=== PATIENT | male | born 1955 | race Caucasian/White ===

== ENCOUNTER 2020-06-01 13:07 | Emergency (ER) | payer OTHER, SELFPAY ==
--- NOTE | ~2020-06-01 | XR_ITS ---
XR abdomen/kub 1V DATE: 06/01/2020 14:11 INDICATION: Left flank and abdominal pain TECHNIQUE: AP projection, 2 views COMPARISON: None FINDINGS: There is a faint calcific density overlying the left ureteropelvic junction, which may acco unt for left flank pain. There is probable left nephromegaly. Noncontrast CT abdomen pelvis examinati on would be helpful for more definitive confirmation. Subtle faint opacities overlying the left renal silhouette might indicate or more additional calculi. Again, noncontrast CT abdomen pelvis examination would be much more sensitive and accurate for detec tion of urinary tract calculi. The psoas shadows are intact. There is a prominent amount of fecal material in the colon but no evidence of bowel obstruction. IMPRESSION: Suspected approximately 4 mm left ureterovesical junction faintly calcified calculus; non contrast CT abdomen pelvis examinations] is recommended Reviewed, dictated and finalized at [facility]. Reviewed, dictated and finalized at location A. TE MEDICAL CODER IMPRESSION: Suspected approximately 4 mm left ureterovesical junction faintly c alcified calculus; noncontrast CT abdomen pelvis examinations] is recommended
[2020-06-01 13:15] VITALS: BP 148/92; PULSE 59; RESP 20; TEMP 36.5; O2SAT 98
--- NOTE | 2020-06-01 13:43 | ED.GENADULT ---
HPI - General Adult General Chief complaint: Back Pain/Injury Stated complaint: abd/back pain Time Seen by Provider: 06/01/20 13:34 Source: patient and RN notes reviewed Mode of arrival: ambulatory Limitations: no limitations History of Present Illness HPI narrative: 64-year-old male presents with complaints of diffused lower back pain with radiating to LT flank into left lower quadrant and groin for 1 day. Ho reports playing cyber golf for the past 48 hours initially believed back pain was related to golf playing until he started sweating 1-2 hours prior to arrival to [facility]. Awaken this morning with diffused back pain and sweating which increased throughout the day. Hot bath, back massager, Advil (400mg last today at 13:00), and Flexeril (10mg last today at 12:00) without relief. Denies new injuries or falls. Denies numbness or tingling. Denies fever or chills. No upper or lower extremity pain or weakness. Exacerbating factor consist of using massager. Denies nausea or vomiting. Tolerating po intake well. Denies problems with urinating or having a bowel movement, LBM 05/31/20 per patient and normal. No hematuria or dysuria. Denies chest pain, shortness of breath, dizziness, syncopal episodes, lightheadedness, or seizure activity. Remains active. The patient reports he have not been diagnosed with COVID-19. The patient reports he is not waiting for the results of a COVID-19 lab test. The patient reports he do not have chills, weakness, or fatigue. The patient reports he do not have a new or worsening cough. The patient reports he do not have any rhinorrhea, congestion, loss of taste or smell, sore throat, or diarrhea. Denies recent traveling. Denies concerns for COVID-19 or exposures been home with limited outdoor exposure except for essential household needs and return home. At this time, patient is not suspected of having COVID-19. Some parts of this dictation were generated by voice recognition software and may contain typographical and/or grammatical inaccuracies. Related Data Home Medications Medication Instructions Recorded Confirmed aspirin 81 mg tablet,delayed 81 mg PO DAILY 04/16/19 06/01/20 release cetirizine 10 mg tablet 10 mg PO DAILY PRN 04/16/19 06/01/20 coenzyme Q10 10 mg capsule 10 mg PO ONCE 04/16/19 06/01/20 cholecalciferol (vitamin D3) 50 50 mcg PO DAILY 11/02/19 06/01/20 mcg (2,000 unit) capsule multivitamin 1 tablet PO DAILY 11/02/19 06/01/20 omega-3 fatty acids 1,000 mg 1,000 mg PO DAILY 11/02/19 06/01/20 capsule Allergies Allergy/AdvReac Type Severity Reaction Status Date / Time rosuvastatin Allergy Unknown Unknown Verified 06/01/20 13:13 simvastatin Allergy Unknown Double Verified 06/01/20 13:13 vision Review of Systems Review of Systems: Narrative: CONSTITUTIONAL: Denies fever, chills. Complains of being clammy. EYES: Denies visual changes, redness, discharge. ENT: Denies rhinorrhea, congestion, sore throat, otalgia. CARDIOVASCULAR: Denies chest pain, palpitations, edema. RESPIRATORY: Denies dyspnea, wheezing, cough. GASTROINTESTINAL: Complains of LLQ pain. Denies nausea, vomiting, diarrhea. GENITOURINARY: Denies dysuria, hematuria, abnormal discharge. SKIN: Denies rash or itching. MUSCULOSKELETAL: Complains of diffused lower back pain with radiating to LT flank. Denies joint pain or myalgia. NEUROLOGIC: Denies numbness or focal weakness. PSYCHIATRIC: Denies anxiety or depression. All systems reviewed & are unremarkable except as noted in HPI and below. [facility] Past Medical History Medical History (Updated 06/01/20 @ 14:42 by ANIL Brennan) BPV (benign positional vertigo) Diverticulitis Essential (primary) hypertension Hearing loss in right ear Hemorrhoids Peter report internal with intermittent bleeding Hypercholesteremia Inflamed seborrheic keratosis Metabolic syndrome Migraine variant without intractability Prediabetes Prostatitis S
--- NOTE | 2020-06-01 14:56 | PC.NURSE ---
1350: patient sitting upright on exam table and reports that the pain has gone.
== END 2020-06-01 14:46 | disposition home or self-care (01) ==
PROVIDERS: Emergency Provider Nurse Practitioner Family; PCP Family Medicine
DX: N20.0 Calculus of kidney (principal); I10 Essential (primary) hypertension; E78.00 Pure hypercholesterolemia, unspecified; E88.81 Metabolic syndrome and other insulin resistance
CPT/HCPCS: 74018; 81003; 99213; G0463

== ENCOUNTER → 2020-06-05 15:18 | Outpatient (CLI) | payer OTHER, SELFPAY ==
--- NOTE | ~2020-06-05 | CT_ITS ---
EXAMINATION: CT abdomen pelvis wo con DATE: 06/05/2020 15:38 INDICATION: Left flank pain, microscopic hematuria TECHNIQUE: Computed tomography (CT) of the abdomen and pelvis was performed without intravenous contr ast. The dose-length product (DLP) was 1090.64 mGy-cm. Automated exposure control and iterative recon struction technique were employed. COMPARISON: 06/01/2020 FINDINGS: The lung bases are clear. The heart size is normal. The liver, spleen, pancreas, gallbladde r, and adrenal glands are normal. There is a 5 mm stone at the left ureteropelvic junction which caus es mild hydronephrosis. The right kidney is unremarkable. Surgical changes are noted in the sigmoid c olon. No pathologically enlarged abdominal or pelvic lymph nodes are identified. There is no free int raperitoneal gas or evidence of bowel obstruction. The appendix is normal. There is moderate lumbar s pondylosis. A tiny fat-containing umbilical hernia is noted. IMPRESSION: 1. 5 mm stone at the left ureteropelvic junction causing mild left hydronephrosis. Recent KUB positiv e. Reviewed, dictated and finalized at location A. PS ENGINEER IMPRESSION: 1. 5 mm stone at the left ureteropelvic junction causing mild left hydronephros is. Recent KUB positive.
== END ==
PROVIDERS: PCP Family Medicine; Visit Provider Family Medicine
DX: N20.1 Calculus of ureter (principal)
CPT/HCPCS: 74176

== ENCOUNTER → 2020-06-09 11:14 | Outpatient (CLI) | payer OTHER, SELFPAY ==
--- NOTE | ~2020-06-09 | XR_ITS ---
EXAMINATION: XR abdomen/kub 1V INDICATION: Calcium kidney stone TECHNIQUE: Supine views of the abdomen were obtained on 2 radiographs. COMPARISON: 06/01/2020 FINDINGS: There is a subtle persistent 5 mm calcification at the expected location of the left ureter opelvic junction projecting between the left L3 and L4 transverse processes. No additional urinary tr act calculi are identified. The bowel gas pattern is normal. There is mild osteoarthritis of the hips . IMPRESSION: 1. Stable 5 mm stone at the left ureteropelvic junction. Reviewed, dictated and finalized at location A. PROCESSOR
== END ==
PROVIDERS: PCP Family Medicine; Visit Provider Urology
DX: N20.0 Calculus of kidney (principal)
CPT/HCPCS: 74018

== ENCOUNTER 2020-06-19 13:02 | Outpatient (CLI) | payer OTHER, SELFPAY ==
--- NOTE | 2020-06-19 13:16 | ECG_ITS ---
Measurements Intervals [place] Rate: 60 P: 13 AL: 129 QRS: 39 QRSD: 98 T: 61 QT: 423 QTc: 425 Interpretive Statements SINUS RHYTHM BORDERLINE R WAVE PROGRESSION, ANTERIOR LEADS BORDERLINE ST-T WAVE ABNORMALITY- ANT/HIGH LAT LEADS BASELINE ARTIFACT- I, III, AVR, AVL, V5-V6 BORDERLINE ECG Electronically Signed On 06-19-2020 13:40:38 CDT by Hubert Vargas D.O.
[2020-06-19 14:01] LABS: INR 0.9; Prothrombin Time 12.9 Seconds (11.1-14.7)
[2020-06-19 14:03] LABS: Anion Gap 6 mmol/L (8-16); Blood Urea Nitrogen 17 mg/dL (9-20); Calcium 9.5 mg/dL (8.4-10.2); Carbon Dioxide 30 mmol/L (22-30); Chloride 104 mmol/L (98-107); Estimated Glomerular Filt Rate > 60; Glucose 86 mg/dL (75-110); Potassium 4.4 mmol/L (3.4-5.0); Sodium 140 mmol/L (137-145)
== END 2020-06-19 13:03 | disposition home or self-care (01) ==
LOC: ANHSURGERY 13:03
PROVIDERS: Anesthesiology; PCP Family Medicine; Visit Provider Urology
DX: N20.1 Calculus of ureter (principal); E78.00 Pure hypercholesterolemia, unspecified; I10 Essential (primary) hypertension; E11.9 Type 2 diabetes mellitus without complications; Z01.818 Encounter for other preprocedural examination
CPT/HCPCS: 36415; 80048; 85610; 85730; 87086; 93005

== ENCOUNTER → 2020-06-24 03:09 | Outpatient (CLI) | payer OTHER, SELFPAY ==
[2020-06-24 18:08] LABS: SARS-CoV-2 RNA PCR Negative
== END ==
PROVIDERS: PCP Family Medicine; Visit Provider Urology
DX: Z01.812 Encounter for preprocedural laboratory examination (principal); Z20.822 Contact with and (suspected) exposure to COVID-19
CPT/HCPCS: C9803; U0003; U0005

== ENCOUNTER 2020-06-27 00:50 | Day surgery (SDC) | payer OTHER, SELFPAY ==
[2020-06-18 12:43] VITALS: BMI 31.1
--- NOTE | 2020-06-26 10:00 | WPDANESEPPF ---
Anes - Initial Pre Proc Eval Procedure: Operation Date: 06/27/20 09:30 Proposed Procedures p Left Ureteral Extracorporeal Shock Wave Lithotripsy - Kris Casey MD Date/Time: 06/26/20 10:00 Surgeon: Kris Casey MD Pre Op Diagnosis: Left Ureteral Stone Patient Data Age: 64 Gender: M Height: 1.83 m Weight: 104.3 kg Allergies Allergy/AdvReac Type Severity Reaction Status Date / Time rosuvastatin Allergy Unknown Unknown Verified 06/27/20 08:00 simvastatin Allergy Unknown Double Verified 06/27/20 08:00 vision Home Medications Medication Instructions Recorded Confirmed Type aspirin 81 mg tablet,delayed 81 mg PO DAILY 04/16/19 06/27/20 History release cetirizine 10 mg tablet 10 mg PO DAILY PRN 04/16/19 06/27/20 History coenzyme Q10 10 mg capsule 10 mg PO DAILY 04/16/19 06/27/20 History cholecalciferol (vitamin D3) 50 50 mcg PO DAILY 11/02/19 06/27/20 History mcg (2,000 unit) capsule multivitamin 1 tablet PO DAILY 11/02/19 06/27/20 History omega-3 fatty acids 1,000 mg 1,000 mg PO DAILY 11/02/19 06/27/20 History capsule atenolol 25 mg tablet 25 mg PO DAILY #90 tablet 12/24/19 06/27/20 Rx metformin 500 mg tablet 500 mg PO DAILY #90 tablet 12/24/19 06/27/20 Rx fenofibrate 160 mg tablet 160 mg PO DAILY #90 tablet 04/21/20 06/27/20 Rx ibuprofen 800 mg PO TID PRN #60 tablet 06/01/20 06/27/20 Rx tamsulosin 0.4 mg PO DAILY #14 cap 06/01/20 06/27/20 Rx Patient hx anesthesia problems: none Family hx anesthesia problems: none PMFSH Past Medical History Medical History (Updated 06/06/20 @ 08:30 by Will Deshpande MD) BPV (benign positional vertigo) Diverticulitis Essential (primary) hypertension Hearing loss in right ear Hemorrhoids Peter report internal with intermittent bleeding Hypercholesteremia Inflamed seborrheic keratosis Metabolic syndrome Migraine variant without intractability Prediabetes Prostatitis Ureteral calculi Surgical History Surgical History (Updated 06/01/20 @ 14:19 by ANIL Brennan) History of colon surgery related to diverticulitis-2003 History of spinal surgery 1996 L5-S1 Family History Family History Father Family history of cardiovascular disease Grandparent Family history of lung cancer Social History Social History (Updated 06/01/20 @ 16:01 by ANIL Brennan) Smoking status: Never smoker Tobacco type: cigarettes Second hand tobacco smoke exposure: No Alcohol intake: current Drinks per week: 4 Alcohol use details: 3-4 DRINKS ON WEEKEND EVENINGS Substance use: never Substance use type: does not use Living arrangements: with family Additional occupation/education comments: 04/03/20 Gender identity (if verbalized by the patient): Male Spiritual care concerns: No Anes - Eval Final PreProcedure Day of Procedure 06/26/20 10:00 Patient weight: obese Heart: regular rate and rhythm Lungs: clear to auscultation and normal air movement Airway: Mallampati scale class III Neurological: alert and oriented Last oral intake: >/= 8 hours ASA classification: III Emergent: no Anesthetic plan: proceed Anesthesia type and monitoring: general LMA and standard monitoring Informed Consent: The patient's anesthetic plan and its attendant risks and benefits were discussed with the patient/family/POA. Questions were solicited and answers provided to the satisfaction of the patient/family/POA.
[2020-06-27] VITALS (9 sets, daily range): BP systolic 94–128; BP diastolic 58–79; PULSE 51–59; RESP 14–16; TEMP 36.2; O2SAT 96–99
--- NOTE | ~2020-06-27 | XR_ITS ---
XR abdomen/kub 1V 06/27/2020 07:42 Indication: Preop lithotripsy therapy. Renal stones. Procedure: KUB Comparison: 06/09/2020 Findings: There is a punctate stone in the lower pole of the left kidney. Bowel gas pattern is nonobs tructive. Moderate colonic fecal loading. Mild osteoarthritis of the hips. Visualized aspects of the lung bases unremarkable. Impression: 1: Small lower pole stone in the left kidney. Reviewed, dictated and finalized at location B. Impression: 1: Small lower pole stone in the left kidney.
--- NOTE | 2020-06-27 06:35 | WPDHPUPDATE1 ---
History and Physical Update Update Date/Time: 06/27/20 06:35 History and Physical has been reviewed, including an updated exam of the patient. There are NO changes in the patient's condition. Risks, benefits, and alternatives have been discussed and questions answered. Patient agrees to proceed with procedure.
[2020-06-27] MEDS: LACTATED RINGERS 1,000 ML 30 ML IV CONT ×2 (08:15→10:17)
[2020-06-27 08:25] LABS: Glucose Point of Care 108 (65-105)
--- NOTE | 2020-06-27 09:51 | PM.PROC ---
Procedure Note - Detailed Date of procedure: 06/27/20 Pre-op diagnosis: Left Renal Stone Post-op diagnosis: same Procedure performed: Left ESWL Description of procedure: The patient was brought to the operative suite where he was placed in the supine position on the Dornier lithotripsy table. The focal point of the lithotripter was placed at a 5mm left renal calculus. A total of 2500 shocks were delivered at a power setting of 4. There appeared to be good fragmentation of the stone. The patient tolerated the procedure well and was taken to the recovery room in good condition. Anesthesia: GLMA Surgeon: Kris Casey MD Drains: No Packing: No Pathology: none sent Complications: No immediate complications Condition: stable Disposition: PACU
[2020-06-28 21:30] LABS: Glucose Point of Care 113 (65-105)
== END 2020-06-27 12:28 | disposition home or self-care (01) ==
PROVIDERS: PCP Family Medicine; Visit Provider Urology
PROC: (CPT 50590; principal; 2020-06-27 09:30)
DX: N20.0 Calculus of kidney (principal); I10 Essential (primary) hypertension; E78.00 Pure hypercholesterolemia, unspecified; R73.03 Prediabetes; Z79.84 Long term (current) use of oral hypoglycemic drugs; Z79.82 Long term (current) use of aspirin; E66.9 Obesity, unspecified; Z68.30 Body mass index [BMI] 30.0-30.9, adult
CPT/HCPCS: 50590; 36415; 74018; 80048; 82948; 85610; 85730; 87086; 93005; C9803; J1100; J2405; J2704; J7120; U0003; U0005

== ENCOUNTER 2020-07-14 11:25 | Outpatient (CLI) | payer OTHER, SELFPAY ==
--- NOTE | ~2020-07-14 | XR_ITS ---
EXAMINATION: XR abdomen/kub 1V INDICATION: Ureteral stone post lithotripsy TECHNIQUE: Supine views of the abdomen were obtained on 2 radiographs. COMPARISON: 06/27/2020 FINDINGS: No definite urolithiasis is identified. The previously described punctate left kidney stone is not seen. The bowel gas pattern is normal. There is mild osteoarthritis of the hips. IMPRESSION: 1. No urolithiasis is identified. Reviewed, dictated and finalized at location B.
== END 2020-07-14 11:26 | disposition home or self-care (01) ==
PROVIDERS: PCP Family Medicine; Visit Provider Urology
DX: N20.1 Calculus of ureter (principal)
CPT/HCPCS: 74018

== ENCOUNTER → 2021-01-19 08:40 | Outpatient (CLI) | payer OTHER, SELFPAY ==
--- NOTE | ~2021-01-19 | XR_ITS ---
XR abdomen/kub 1V 01/19/2021 09:05 INDICATION: Left ureteral cyst TECHNIQUE: KUB COMPARISON: Comparison to multiple prior studies sequentially, with oldest reviewed study dated 06/01. FINDINGS: Bowel gas pattern is normal. Moderate colonic fecal loading. There is no evidence of free a ir, mass, organomegaly, ascites or obstruction. No abnormal calculi are seen. The bones appear inta ct. IMPRESSION: 1: No acute abdominal abnormality identified. Reviewed, dictated and finalized at location B.
== END ==
PROVIDERS: Visit Provider Urology
DX: N20.1 Calculus of ureter (principal)
CPT/HCPCS: 74018

== ENCOUNTER → 2021-07-27 11:17 | Outpatient (CLI) | payer OTHER, SELFPAY ==
--- NOTE | ~2021-07-27 | CT_ITS ---
EXAMINATION: CT sinus wo con DATE: 07/27/2021 11:32 INDICATION: Chronic sinusitis. Chronic congestion. TECHNIQUE: Computed tomography (CT) of the paranasal sinuses was performed without contrast. Iterativ e reconstruction technique was employed. Exam dose: 290.62 mGy-cm total exam DLP. COMPARISON: None FINDINGS: There is leftward bowing of the nasal septum. Prominent elvia bullosa and intralamellar cell of right middle nasal turbinate. The nasal turbinates are moderately prominent in size bilaterally. The maxillary ostium and infundibulum are patent bilaterally. Normal development and aeration of the paranasal sinuses and mastoid air cells. IMPRESSION: Leftward bowing of nasal septum Elvia bullosa and intralamellar cell of right middle nasal turbinate Reviewed, dictated and finalized at [facility]. Reviewed, dictated and finalized at location A.
== END ==
PROVIDERS: PCP Family Medicine; Visit Provider Family Medicine
DX: J32.9 Chronic sinusitis, unspecified (principal); J34.2 Deviated nasal septum
CPT/HCPCS: 70486

== ENCOUNTER → 2021-11-02 12:44 | Outpatient (CLI) | payer BC, SELFPAY ==
--- NOTE | ~2021-11-02 | XR_ITS ---
EXAMINATION: XR chest 2V 11/02/2021 12:59 INDICATION: Cough PROCEDURE: 2 view chest COMPARISON: No prior studies for comparison. FINDINGS: The lungs are clear. The cardiomediastinal silhouette is within normal limits. There are no pleural effusions. There is no pneumothorax suspected. IMPRESSION: 1: NO ACUTE CARDIOPULMONARY DISEASE. Reviewed, dictated and finalized at location A.
== END ==
PROVIDERS: PCP Family Medicine; Visit Provider Physician Assistant
DX: R05.9 Cough, unspecified (principal)
CPT/HCPCS: 71046

== ENCOUNTER → 2022-06-07 15:27 | Outpatient (CLI) | payer BC, SELFPAY ==
--- NOTE | ~2022-06-07 | MR_ITS ---
EXAMINATION: MR lumbar spine wo con DATE: 06/07/2022 16:08 INDICATION: Low back pain TECHNIQUE: Magnetic resonance imaging (MRI) of the lumbar spine was performed without intravenous con trast. Sequences included sagittal T2-weighted FSE, sagittal T2-weighted FS FSE, sagittal T1-weighted FSE, and axial T2-weighted FSE. COMPARISON: Lumbar spine MR dated 01/10/[address] abdomen and pelvis dated FINDINGS: A degree lumbar levocurvature. 6 mm retrolisthesis L5 on S1. Vertebral body heights are normal. Marisol l marrow signal. Mild disc height loss with mild disc desiccation at L3-L4 and L4-L5. Moderate disc h eight loss at L5-S1. Annular fissures at both L4-L5 and L5-S1. Multiple tiny foci of postoperative glass sceptibility artifact at the site of a chronic left-sided hemilaminotomy at L5-S1. The conus medullar is terminates at L1. There is normal signal in the caudal spinal cord. The following disc levels are specifically discussed: T12-L1: The disc does not extend beyond the endplate margin. There is mild left and moderate right fa cet joint osteoarthritis. There is no neural foraminal stenosis. There is no central canal stenosis. L1-L2: Disc is minimally bulging. There is moderate right and mild to moderate left facet joint osteo arthritis. There is mild bilateral neural foraminal stenosis. There is mild central canal stenosis. L2-L3: The disc does not extend beyond the endplate margin. There is mild hypertrophy of the ligament um flavum. There is mild bilateral facet joint osteoarthritis. There is mild bilateral neural forami nal stenosis. There is mild central canal stenosis. L3-L4: Disc is mildly bulging. There is hypertrophy of the ligamentum flavum. There is mild right and mild to moderate left facet joint osteoarthritis. There is mild left and mild to moderate right neur al foraminal stenosis. There is mild central canal stenosis. L4-L5: Disc is mildly bulging with superimposed annular fissure and central to left foraminal zone di sc protrusion. There is mild to moderate bilateral facet joint osteoarthritis. There is moderate bila teral neural foraminal stenosis. There is mild central canal stenosis along with moderate narrowing o f the left lateral recess. L5-S1: Disc is bulging with annular fissure. Small and placed osteophytes at the bilateral foraminal zones. There is mild right and mild to moderate left . facet joint osteoarthritis. There is moderate bilateral neural foraminal stenosis. Left posterior decompression. There is no central canal stenosis . IMPRESSION: 1. Mild to moderate lower lumbar predominant spondylosis. 2. Chronic L5-S1 left hemilaminotomy. Reviewed, dictated and finalized at location A. UM BLOCK SETTER
== END ==
PROVIDERS: PCP Family Medicine; Visit Provider Physical Medicine & Rehabilitation
DX: M47.896 Other spondylosis, lumbar region (principal)
CPT/HCPCS: 72148

== ENCOUNTER 2023-05-23 08:41 | Outpatient (CLI) | payer MEDICARE, OTHER, SELFPAY ==
--- NOTE | 2023-06-13 11:04 | WPDSLEEPSTUD ---
Sleep Study Date of Study: 05/23/23 Ordering Provider: Romie Harp, WANDA Interpreting Physician: Lizzeth Sewell DO Sleep Study Type: Split Polysomnogram Height: 1.83 m Weight: 102.058 kg Body Mass Index: 30.5 Neck Circumference (inches): 17 [place]: 5 Reason for Sleep Study Elevated blood pressure and hemoglobin Sleep History The patient is a 67-year-old male hypertension, hyperlipidemia, seasonal allergies, prediabetes and metabolic syndrome that had a sleep study ordered by his primary care for evaluation of sleep apnea. The patient occasionally awakens at night with heartburn, belching or cough. He constantly snores loud enough that others complain. He occasionally has trouble sleeping when he has a cold. He denies waking up gasping for air throughout the night. He denies having breathing problems at night observed by himself or others. He occasionally sweats excessively at night. He denies having heart palpitations or irregular heartbeats during the night. He occasionally falls asleep during the day but never while driving. He denies sleep paralysis, cataplexy and hypnagogic / hypnopompic hallucinations. He denies having trouble at school or work due to sleepiness. He denies feeling afraid of going to sleep. He denies having nightmares. He rarely remembers his dreams. He occasionally has thoughts racing through his mind. He denies feeling sad or depressed. He occasionally has anxiety. He denies having muscular tension. He occasionally notices parts of his body jerk. He denies kicking during the night. He frequently has crawling and aching feelings in his legs and frequently has leg pain during the night. He denies grinding his teeth during sleep denies awakening morning jaw pain. He is frequently bothered by pain during the day but rarely awakened by pain during the night. He frequently wakes feeling stiff in morning. He denies waking up with sore or achy muscles. He occasionally wakes up with pain in the neck, spine and other joints. He goes to bed between 11:00 p.m. to midnight on both weekdays and weekends. It takes him 30 minutes to fall asleep. He wakes up 1-2 times throughout the night to urinate is able to fall back asleep within 30-60 minutes. He wakes up between 8-10 a.m. on both weekdays and weekends. He typically gets 7-9 hours of sleep per night. He was stay in bed for 1 hour after waking up in the morning. He lives with his and daughter. He denies consuming any caffeinated beverages within 2 hours of bedtime. He denies engaging in physical exercise before bedtime. He will read watch television before falling asleep. Will take naps in afternoon or the evening and they are refreshing. He consumes 1 cup of caffeinated beverage per day. He consumes 2-3 alcoholic beverages on weekends. He denies tobacco and recreational drug use. [facility] Past Medical History Medical History BPV (benign positional vertigo) COVID-19 Diverticulitis Essential (primary) hypertension Hearing loss in right ear Hemorrhoids Peter report internal with intermittent bleeding Hypercholesteremia Inflamed seborrheic keratosis Metabolic syndrome Migraine variant without intractability Prediabetes Prostatitis Ureteral calculi Surgical History Surgical History History of colon surgery related to diverticulitis-2003 History of spinal surgery 1996 L5-S1 Family History Family History Father Family history of cardiovascular disease Grandparent Family history of lung cancer Social History Social History Smoking status: Never smoker Tobacco type: cigarettes Second hand tobacco smoke exposure: No Alcohol intake: current Drinks per week: 8 Alcohol use details
[2023-06-13 11:28] VITALS: BMI 30.5
== END 2023-05-24 07:36 | disposition home or self-care (01) ==
LOC: ANHCSM 08:42
PROVIDERS: PCP Family Medicine; Visit Provider Physician Assistant
DX: R29.818 Other symptoms and signs involving the nervous system (principal); G47.33 Obstructive sleep apnea (adult) (pediatric)
CPT/HCPCS: 95811

== ENCOUNTER 2023-12-20 15:33 | Outpatient (CLI) | payer MEDICARE, OTHER, SELFPAY ==
[2023-12-20 15:47] LABS: Basophils Absolute Auto 0.1 K/mm3 (0.0-0.1); Basophils Percent Auto 1.1 % (0.2-1.2); Eosinophils Absolute Auto 0.2 K/mm3 (0-0.3); Eosinophils Percent Auto 2.5 % (0-4.4); Hematocrit 52.4 % (42.0-52.0); Hemoglobin 18.3 g/dL (14.0-18.0); Immature Granulocyte Absolute 0.03 K/mm3 (0.00-0.031); Immature Granulocyte Percent A 0.5 % (0-0.5); Lymphocytes Absolute Auto 2.13 K/mm3 (0.9-3.2); Mean Corpuscular HGB Conc 34.9 g/dl (32-36); Mean Corpuscular Hemoglobin 30.7 pg (26-34); Mean Corpuscular Volume 87.9 fl (80-100); Mean Platelet Volume 9.1 fl (7.4-10.4); Monocytes Absolute Auto 0.7 K/mm3 (0.1-0.6); Monocytes Percent Auto 10.4 % (2.6-8.5); Neutrophils Absolute Auto 3.4 K/mm3 (1.3-6.7); Neutrophils Percent Auto 52.5 % (45.5-73.1); Platelet Count Result 234 k/mm3 (150-375); Red Blood Count 5.96 M/mm3 (4.6-6.20); Red Cell Distribution Width 12.5 % (11.5-14.5); White Blood Count 6.5 K/mm3 (4.5-10.0)
[2023-12-20 16:29] LABS: Alanine Aminotransferase 56 U/L (6-50); Albumin Level 4.4 g/dL (3.5-5.1); Alkaline Phosphatase 61 U/L (38-126); Anion Gap 13 mmol/L (4-12); Aspartate Amino Transferase 35 U/L (17-59); Bilirubin,Total 0.5 mg/dL (0.2-1.3); Blood Urea Nitrogen 27 mg/dL (9-20); Carbon Dioxide 28 mmol/L (22-30); Chloride 100 mmol/L (98-107); Estimated Glomerular Filt Rate > 60; Glucose 124 mg/dL (65-110); Potassium 3.9 mmol/L (3.4-5.0); Sodium 141 mmol/L (137-145)
[2023-12-27 23:58] LABS: JAK2 V617F Mutation NOT DETECTED (NOT DETECTED); Specimen Source BLOOD
[2023-12-30 17:14] LABS: Erythropoietin (EPO) 16.9 mIU/mL (2.6-18.5)
== END 2023-12-20 15:34 | disposition home or self-care (01) ==
LOC: ANHLAB 15:38
PROVIDERS: PCP Family Medicine; Visit Provider Internal Medicine Hematology & Oncology
DX: D75.1 Secondary polycythemia (principal)
CPT/HCPCS: 36415; 80053; 81270; 82668; 85025

== ENCOUNTER 2024-04-26 14:03 | Outpatient (CLI) | payer MEDICARE, OTHER, SELFPAY ==
[2024-04-26 14:21] LABS: Hematocrit 50.9 % (42.0-52.0); Hemoglobin 17.4 g/dL (14.0-18.0); Mean Corpuscular HGB Conc 34.2 g/dl (32-36); Mean Corpuscular Hemoglobin 29.9 pg (26-34); Mean Corpuscular Volume 87.6 fl (80-100); Mean Platelet Volume 8.9 fl (7.4-10.4); Platelet Count Result 212 k/mm3 (150-375); Red Blood Count 5.81 M/mm3 (4.6-6.20); Red Cell Distribution Width 12.4 % (11.5-14.5); White Blood Count 7.4 K/mm3 (4.5-10.0)
--- OUTSIDE RECORDS SUMMARY | 2024-04-27 05:31 | XMS_ITS | Encounter Summary ---
Author Organization [facility] Address [address] [place] [address] Care Team Providers Care Blood And Plasma Laboratory Assistant Name Role Phone Will Deshpande MD Primary Care Provider [phone]- [phone] Reason for Visit * Reason Comments Follow Up Encounter Details Date Type Department Care Team (Late st Contact Info) Description 04/26/2024 2:15 PM INTERACTIVE MEDIA MARKETING DIRECTOR Office Visit [facility] Oncology and Hematology - [place] [address] [facility] [address] [place] [address] Axel Chicas MD [address] [facility] [address] [place] [address] Polycythemia, secondary (Primary Dx) Social History Tobacco Use Types Packs/Day Years Used Date Smoking Tobacco: Never Smokeless Tobacco: Never Tobacco Cessation:Counseling Given: Not Answered Alcohol Use Standard Drinks/Week Comments Yes 0 (1 standard drink = 0.6 oz pur e alcohol) Socially Sex and Gender Information Value Date Recorded Sex Assigned at Not on file Legal Sex Male 10:22 AM CDT Gender Identity Not on file Sexual Orientation Not on file documented as of this encounter Last Filed Vital Signs Vital Sign Reading Time Taken Comments Blood Pressure 121/73 04/26/2024 2:23 PM INTERACTIVE MEDIA MARKETING DIRECTOR Pulse 69 04/26/2024 2:23 PM INTERACTIVE MEDIA MARKETING DIRECTOR Temperature 36.6 ??C (97.9 ??F) 04/26/2024 2:23 PM CS T Respiratory Rate 16 04/26/2024 2:23 PM INTERACTIVE MEDIA MARKETING DIRECTOR Oxygen Saturation 97% 04/26/2024 2:23 PM INTERACTIVE MEDIA MARKETING DIRECTOR Inhaled Oxygen Concentration - - Weight 108.4 kg (239 lb) 04/26/2024 2:23 PM INTERACTIVE MEDIA MARKETING DIRECTOR Height - - Body Mass Index 32.41 12/20/2023 3:03 PM CDT documented in this encounter Progress Notes * Axel Chicas MD - 04/26/2024 2:35 PM CST HEMATOLOGY / ONCOLOGY PROGRESS NOTE Patient Identification: Name: Ho Ching Age: 68 y.o. Sex: male : 1955 DIAGNOSIS Secondary erythrocytosis CURRENT TREATMENT Baby aspirin TREATMENT HISTORY Phlebotomy done on April 20, 2024 SUBJECTIVE Patient came to the office for follow-up visit after the phlebotomy was performed. He denies any chest pain and shortness of breath. No bleeding and bruising. Weight and appetite stable. No other newcomplaints. Review of system Constitutional: Patient did not mention fevers, sweats, denies any tiredness and fatigue, weight and appetite stable. HEENT: Patient did not mention sinus congestion, hearing or vision problems Respiratory: Patient did not mention cough, dyspnea, wheeze Cardiovascular: Patient did not mention chest pain, exertional chest pressure/discomfort, nausea, syncope, shortness of breath GI: Patient did not mention constipation, diarrhea, dsyphagia, reflux symptoms, vomiting, melena : Patient did not mention dysuria, frequency, incontinence, urgency Integumentary system: no lymphadenopathy, sweats, flushing Musculoskeletal: Patient not mention: myalgia, arthralgia Neurological: Patient did not mention blurry or disturbed vision, numbness/weakness, dizziness Skin: No lumps, bumps or rashes. 12 point review of system was reviewed Objective: Vital signs in last 24 hours: As per nursing note Exam: HEENT: Atraumatic, external ears normal, nose normal, oropharynx moist, no pharyngeal exudates. no sinus tenderness Neck- normal range of motion, no tenderness, supple Respiratory: No respiratory distress, normal breath sounds, no rales, no wheezing Cardiovascular: Normal rate, normal rhythm, no murmurs, no gallops, no rubs GI: Soft, nondistended, normal bowel sounds, nontender, no splenomegaly, no hepatomegaly, no mass, no rebound, no guarding : No costovertebral angle tenderness Musculoskeletal: No edema, no tenderness, no deformities. Back- no tenderness Integument: Well hydrated, no rash, Digits and nails inspection normal Lymphatic: No lymphadenopathy noted Neurologic: Alert & oriented x 3, CN 2-12 normal, normal motor function, normal sensory function, no focal deficits noted Exam as above PATH LABS Labs from December 19 showed hemoglobin 18.3 hematocrit 52.4 JAK2 mutation negative erythropoietinlevel 16.9 Labs from April 26 showed hemoglobin 17.4 hematocrit 50.9 Assessment: Plan: There are no active problems to display for this patient. 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 JAK2 mutation negative. Secondary to obesity and sleepapnea Patient had phlebotomy done on April 20, 2024. Labs showed improvement in hematocrit now down to 50.9. He will continue baby aspirin and come backin 3 months for possible phlebotomy. I plan to see him back in 6 months. Sleep apnea. He will continue using CPAP machine. Have recommended regular exercise and weight loss. Type 2 diabetes. Stable on metformin. Follow-up in 6 months. 04/26/2024 Axel Chicas MD RACTIVE MEDIA MARKETING DIRECTOR documented in this encounter Plan of Treatment Upcoming Encounters Date Type Department Care Team (Late st Contact Info) Description 10/25/2024 1:15 PM CDT Office Visit [facility] Oncology and Hematology - [address] [place] [address] Axel Chicas MD [address] [facility] [address] [place] [address] documented as of this encounter Visit Diagnoses Diagnosis Polycythemia, secondary- Primary documented in this encounter Care Teams Blood And Plasma Laboratory Assistant Relationship Specialty Start Date End Date Will Deshpande MD [address] [place] [address] [address] [place] [address] PCP - General Family Practice 12/27/23 documented as of this encounter
--- OUTSIDE RECORDS SUMMARY | 2024-04-27 05:31 | XMS_ITS | Referral Summary ---
Author Organization [facility] Address [address] [place] [address] Care Team Providers Care Mortgage Lender Name Role Phone Will Deshpande MD Primary Care Provider [phone]- [phone] Source Comments [facility],non-owned Affiliates and Associated Physician Practices is amultiple site organization consisting of ambulatory clinics and hospital sitesin [place], [place], [place] and [place]. This disclosure is being madepursuant to the Care Everywhere program and may not contain all information available regarding this patient. Last updated 17.[facility] Allergies No known active allergies Medications * Be aware that medications may not be up to date on this document. Alwaysverify current medications with the patient. Medication Sig Dispensed Refills Start Date End Date Status METFORMIN HCL PO Active ATENOLOL PO Active FENOFIBRATE PO Active Social History Tobacco Use Types Packs/Day Years Used Date Smoking Tobacco: Never Smokeless Tobacco: Never Sex and Gender Information Value Date Recorded Sex Assigned at Not on file Gender Identity Not on file Sexual Orientation Not on file Last Filed Vital Signs Vital Sign Reading Time Taken Comments Blood Pressure 122/80 06/26/2017 4:10 PM CDT Pulse 87 06/26/2017 4:10 PM CDT Temperature 36.9 ??C (98.4 ??F) 06/26/2017 4:10 PM CD T Respiratory Rate 14 06/26/2017 4:10 PM CDT Oxygen Saturation 96% 06/26/2017 4:10 PM CDT Inhaled Oxygen Concentration - - Weight 106.6 kg (235 lb) 06/26/2017 4:10 PM CDT Height 180.3 cm (5' 11 ) 06/26/2017 4:10 PM CDT Body Mass Index 32.78 06/26/2017 4:10 PM CDT Plan of Treatment Not on file Care Teams Mortgage Lender Relationship Specialty Start Date End Date Will Deshpande MD [address] [place] [phone] PCP - General Family Medicine 06/26/17
--- OUTSIDE RECORDS SUMMARY | 2024-04-27 05:31 | XMS_ITS | Patient Health Summary ---
Author Organization [facility] [employer] [facility] Address [address] [place] [address] Care Team Providers Care Retail Business Analyst Name Role Phone Will Deshpande MD Primary Care Provider [phone]- [phone] Note from [facility],non-owned Affiliates and Associated Physician Practices is amultiple site organization consisting of ambulatory clinics and hospital sitesin [place], [place], [place] and [place]. This disclosure is being madepursuant to the Care Everywhere program and may not contain all information available regarding this patient. Last updated 17.[facility] Allergies No known active allergies Medications * Be aware that medications may not be up to date on this document. Alwaysverify current medications with the patient. * METFORMIN HCL PO * ATENOLOL PO * FENOFIBRATE PO Social History Tobacco Use Types Packs/Day Years [...] Mass Index 32.78 06/26/2017 4:10 PM CDT Care Teams Retail Business Analyst Relationship Specialty Start Date End Date Will Deshpande MD [address] [place] [phone] PCP - General Family Medicine 06/26/17
--- OUTSIDE RECORDS SUMMARY | 2024-04-27 05:31 | XMS_ITS | Clinical Summary ---
Author Organization [facility] [address] [place] Address [address] [place] [address] Care Team Providers Care Order Processing Clerk Name Role Phone No, Physician Primary Care Provider [phone] Allergies No known active allergies Medications gabapentin (NEURONTIN) 300 mg capsule START WITH 1 EVERY EVENING AFTER ONE WEEK INCREASE TO TWICE DAILY 08/27/2022 Active lisinopriL (PRINIVIL,ZESTR [place]) 10 mg tablet Take 1 tablet (10 mg total) by mouth daily 11/11/2022 Active atenoloL (TENORMIN) 25 mg tablet Take 1 tablet (25 mg total) by mouth Active metFORMIN (GLUCOPHAGE) 500 mg tablet Take 1 tablet (500 mg total) by mouth Active Active Problems No known active problems Social History Tobacco Use Types Packs/Day Years Used Date Smoking Tobacco: Never Assessed Sex and Gender Information Value Date Recorded Sex Assigned at Not on file 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 Gender Identity Not on file Sexual Orientation Not on file Obstetrics History Last Filed Vital Signs Vital Sign Reading Time Taken Comments Blood Pressure 174/97 11/13/2022 2:20 PM CDT Pulse 71 11/13/2022 2:20 PM CDT Temperature 36.6 ??C (97.8 ??F) 11/13/2022 2:20 PM CD T Respiratory Rate 18 11/13/2022 2:20 PM CDT Oxygen Saturation 97% 11/13/2022 2:20 PM CDT Inhaled Oxygen Concentration - - Weight 104.7 kg (230 lb 14.4 oz) 11/13/2022 2:20 PM CDT Height - - Body Mass Index - - Plan of Treatment Health Maintenance Due Date Last Done Comments Colon Cancer Screening-Colonoscopy 1955 Depression Screening 1955 Fall Risk Assessment 1955 Hepatitis C Screening 1955 Prostate Cancer Screening-PSA 1955 DTaP/Tdap/Td Vaccine (1 - Tdap) 1968 Hepatitis B Screening 09/22/1975 Zoster Vaccine (1 of 2) 09/22/2007 Abdominal Aortic Aneurysm (A AA) Screen 2022 Pneumococcal vaccine 65+ (1 of 1 - PCV) 2022 Well Visit 65+ 2022 Covid-19 Vaccine (4 - 2023- season) 2023 03/21/2021, 07/28/2020, 07/05/2020 Influenza Vaccine (#1) 2023 03/10/2021, 2019 Insurance MEDICARE [employer] Care Teams Order Processing Clerk Relationship Specialty Start Date End Date No, Physician PCP - General 08/14/21
--- OUTSIDE RECORDS SUMMARY | 2024-04-27 05:31 | XMS_ITS | Referral Summary ---
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
--- OUTSIDE RECORDS SUMMARY | 2024-04-27 05:31 | XMS_ITS | Clinical Summary ---
Author Organization [facility] Address [address] [place] [address] Care Team Providers Care Flyer Builder Name Role Phone Will Deshpande MD Primary Care Provider [phone] Allergies Active Allergy Reactions Criticality Noted Date Comments Rosuvastatin Other (See Comments) 12/20/2023 Double vision Simvastatin Other (See Comments) 12/20/2023 Double vision Medications atenoloL (TENORMIN) 25 mg tablet Take 25 mg by mouth daily. Active ezetimibe (ZETIA) 10 mg tablet Take 1 Tablet by mouth daily. 10/28/2023 Active lisinopril-hydr oCHLOROthiazide (ZESTORETIC) 20-25 mg tablet Take 1 Tablet by mouth daily. 10/10/2023 Active metFORMIN (GLUCOPHAGE) 500 mg tablet Take 500 mg by mouth. Active aspirin (ECOTRIN EC) 81 mg Tablet, Delayed Release (E.C.) Take 81 mg by mouth daily. Active cetirizine (ZyrTEC) 10 mg tablet Take 10 mg by mouth daily. Active coenzyme Q10 200 mg Capsule Take 200 mg by mouth daily. Active Fish Oil-[place]-3 Fatty Acids 360-1,200 mg Capsule Take 1 Capsule by mouth. Active Magnesium Hydroxide 400 mg (170 mg magnesium) Tablet, Chewable Take by mouth. Active CALCIUM CARBONATE-VITAM IN D3 ORAL Take 2,000 Int'l Units/day by mouth. Active multivitamin (DAILY-[place]ILLE) tablet Take 1 Tablet by mouth daily. Active Active Problems No known active problems Encounters Date Type Department Care Team Description 04/26/2024 2:15 PM NEEDLE LEADER Office Visit [facility] Oncology and Hematology - [place] [address] [place] [address] Axel Chicas MD Polycythemia, secondary (Primary Dx) 04/17/2024 External Device Data STL ABSTRACTION Provider, Abstract 04/13/2024 Orders Only [facility] Oncology and Hematology [address] [place] [address] Axel Chicas MD 04/12/2024 Telephone [facility] Oncology and Hematology - [place] [address] [place] [address] Axel Chicas MD Lab Results 02/01/2024 External Device Data STL ABSTRACTION Provider, Abstract from Last 3 Months Family History Medical History Relation Name Comments No Known Problems Brother No Known Problems Child 1 No Known Problems Child 2 Heart Disease Father No Known Problems Mother Relation Name Status Comments Brother Alive Child 1 Alive Child 2 Alive Father Mother Social History Tobacco Use Types Packs/Day Years [...] Comments Blood Pressure 121/73 04/26/2024 2:23 PM NEEDLE LEADER Pulse 69 04/26/2024 2:23 PM NEEDLE LEADER Temperature 36.6 ??C (97.9 ??F) 04/26/2024 2:23 PM CS T Respiratory Rate 16 04/26/2024 2:23 PM NEEDLE LEADER Oxygen Saturation 97% 04/26/2024 2:23 PM NEEDLE LEADER Inhaled Oxygen Concentration - - Weight 108.4 kg (239 lb) 04/26/2024 2:23 PM NEEDLE LEADER Height 182.9 cm (6') 12/20/2023 3:03 PM CDT Body Mass Index 32.41 12/20/2023 3:03 PM CDT Plan of Treatment Upcoming Encounters Date Type Department Care Team (Late st Contact Info) Description 10/25/2024 1:15 PM CDT Office Visit [facility] Oncology and Hematology - [place] [address] [facility] [facility] [address] [place] [address] Axel Chicas MD [address] [place] [address] Health Maintenance Due Date Last Done Comments Pre-Diabetes and Diabetes Screening 1955 DTAP/TDAP/TD VACCINES (1 - Tdap) 1976 Traditional Medicare (ACO) Annual Wellness Visit 09/21 COLORECTAL SCREENING 2002 Colorectal Cancer Screening 2002 FIT-DNA Q 3 years 2002 FIT/FOBT Q 1 year 2002 Flex Sig/CT Colonography Q 5 years 2002 PNEUMOCOCCAL VACCINE 65+ YEARS (1 of 1 - PCV) 09/22/19 08 ZOSTER VACCINE (1 of 2) 09/22/2007 INFLUENZA VACCINE (#1) 2023 RSV VACCINE (60+ or ) (1 - 1-dose 75+ series) 2032 Procedures Procedure Name Priority Date/Time Associated Diagnosis Comments CBC WITH DIFFERENTIAL Routine 04/10/2024 1:50 PM NEEDLE LEADER from Last 3 Months Results * CBC WITH DIFFERENTIAL (04/10/2024 1:50 PM NEEDLE LEADER) Blood Axel Chicas MD HEMATOLOGY ORDERABLES Final Res ult from Last 3 Months Insurance MEDICARE PART A AND B [facility] [place] [address] Care Teams Flyer Builder Relationship Specialty Start Date End Date Will Deshpande MD [address] [place] [address] PCP - General Family Practice 12/27/23
--- OUTSIDE RECORDS SUMMARY | 2024-04-27 05:31 | XMS_ITS | Clinical Summary ---
Author Organization [facility] Address [address] [place] [address] Care Team Providers Care Store Operations Specialist Name Role Phone Will Deshpande MD Primary Care Provider [phone]- [phone] Source Comments [facility],non-owned Affiliates and Associated Physician Practices is amultiple site organization consisting of ambulatory clinics and hospital sitesin [place], [place], [place] and [place]. This disclosure is being madepursuant to the Care Everywhere program and may not contain all information available regarding this patient. Last updated 17.[facility] Allergies No known active allergies Medications * [...] 06/26/2017 4:10 PM CDT Plan of Treatment Health Maintenance Due Date Last Done Comments FELISHA (AGES 45-75) - COL ON CA SCREENING 1955 COLON MONITORING 1955 COLONOSCOPY - COLON CA SCREENING 1957 CT COLONOGRAPHY - COLON CA SCREENING 1955 Colorectal Cancer Screening 1955 FIT - COLON CA SCREENING 1955 FLEX SIG - COLON CA SCREENING 1955 LIPID TESTING 1955 HEPATITIS C SCREENING 09/17/1975 DTAP/TDAP/TD VACCINES (1 - Tdap) 1976 PNEUMOCOCCAL VACCINE 50+ (1 of 1 - PCV) 09/22/2007 ZOSTER VACCINE (1 of 2) 09/22/2007 SCREENING FOR DIABETES 06/26/2017 COVID-19 VACCINE (1 - 2023-2 5 season) 2023 INFLUENZA VACCINE (#1) 2023 DEPRESSION SCREENING 04/04/2024 Respiratory Syncytial Virus (RSV) Vaccine Pt: or over 60 yrs (1 - 1-dose 75+ series) 2032 HEPATITIS B VACCINE Aged Out No longe r eligible based on patient's age to complete this topic HIB VACCINE Aged Out No longer eligi ble based on patient's age to complete this topic HPV VACCINE Aged Out No longer eligi ble based on patient's age to complete this topic MENINGOCOCCAL (Group B) VACCINE Aged Out No longer eligible based on patient's age to complete this topic MENINGOCOCCAL VACCINE Aged Out No audelia janis eligible based on patient's age to complete this topic Care Teams Store Operations Specialist Relationship Specialty Start Date End Date Will Deshpande MD [facility] [place] [address] PCP - General Family Medicine 06/26/17
== END 2024-04-26 14:04 | disposition home or self-care (01) ==
LOC: ANHLAB 14:04
PROVIDERS: Visit Provider Internal Medicine Hematology & Oncology
DX: D75.1 Secondary polycythemia (principal)
CPT/HCPCS: 36415; 85027

== ENCOUNTER 2024-12-05 13:49 | Outpatient (CLI) | payer MEDICARE, OTHER, SELFPAY ==
--- NOTE | ~2024-12-05 | XR_ITS ---
EXAM/ PROCEDURE: XR hip LT 2V w AP pelvis - 12/05/2024 13:57 CDT HISTORY: 69 years old Male with Unspecified injury of left hip, initial encounter, golf inj COMPARISON: None available TECHNIQUE: Three view(s) FINDINGS/ IMPRESSION: There are no fractures or dislocations.Joint space narrowing, subchondral sclerosis, subchondral cyst formation and osteophyte formation, compatible with mild osteoarthritis. Reviewed, dictated and finalized at location N.
== END 2024-12-05 13:50 | disposition home or self-care (01) ==
LOC: GOSHIMG 13:49
PROVIDERS: PCP Family Medicine; Visit Provider Family Medicine
DX: S79.912A Unspecified injury of left hip, initial encounter (principal); X58.XXXA Exposure to other specified factors, initial encounter
CPT/HCPCS: 73502